=== PATIENT | male | born 1960 | race Caucasian/White ===

== ENCOUNTER 2024-02-26 10:09 | Emergency (ER) | payer MEDICARE, MEDICAID, SELFPAY ==
[2024-02-26 10:10] VITALS: BMI 31.5
[2024-02-26 10:25] VITALS: BP 173/82; PULSE 76; RESP 20; TEMP 37.6; O2SAT 94; BMI 31.5
--- NOTE | 2024-02-26 10:47 | XR_ITS ---
Examination: PA lateral chest 2 views TECHNIQUE: Upright PA lateral chest 2 views Exam date and time: February 26, 2024 1037 hours Comparison 12/03/2023 INDICATIONS: Coughing 2 weeks FINDINGS: Normal heart size Prominent hilar regions with early bilateral perihilar infiltrate IMPRESSION: Early bilateral perihilar pneumonia, follow-up is needed to document clearing and exclude underlying right hilar lymphadenopathy
--- NOTE | 2024-02-26 10:48 | PD.EDRME ---
Rapid Medical Screening Exam RME Arrival date/time: 02/26/24 10:09 63-year-old male who admits to methamphetamine abuse last use today presents with complaints of cough, congestion, body aches Chief Complaint: Flu Like Symptoms Time Seen by Provider: 02/26/24 10:33 Vital signs: Vital Signs Temperature 99.6 F 02/26/24 10:25 Pulse Rate 76 02/26/24 10:25 Respiratory Rate 20 02/26/24 10:25 Blood Pressure 173/82 H 02/26/24 10:25 Pulse Oximetry (%) 94 L 02/26/24 10:25 Oxygen Delivery Method Room Air 02/26/24 10:25
[2024-02-26 11:25] LABS: Basophils % (Auto) 0 % (0-2.5); Eosinophils % (Auto) 0 % (0-10); Hematocrit 42.9 % (41.0-53.0); Hemoglobin 14.1 g/dL (13.5-16.0); Immature Granulocytes % (Auto) 0 % (0-0); Immature Granulocytes Auto 0.01 Thou/mm3 (0.00-0.00); Lymphocytes % (Auto) 15 % (10-50); Mean Corpuscular HGB Conc 32.9 g/dl (31.0-37.0); Mean Corpuscular Volume 82 fL (80-100); Monocytes # (Auto) 1.1 Thou/mm3 (0.0-0.8); Monocytes % (Auto) 17 % (0-12); Neutrophils # (Auto) 4.6 Thou/mm3 (1.8-7.7); Neutrophils % (Auto) 68 % (37-80); Nucleated Red Blood Cell % 0 /100 WBC (0); Platelet Count 277 Thou/mm3 (140-440); RDW Standard Deviation 41.1 fL (35.1-43.9); Red Blood Count 5.23 Miln/mm3 (4.50-5.90); White Blood Count 6.8 Thou/mm3 (3.8-10.6)
[2024-02-26 11:38] LABS: Collection Type, Urine Clean Catch
[2024-02-26 11:42] LABS: Alanine Aminotransferase 16 U/L (10-49); Albumin, Serum 4.8 gm/dL (3.4-4.8); Albumin/Globulin Ratio 1.3 (1.2-2.2); Alkaline Phosphatase 84 U/L (46-116); Anion Gap 10 (7-16); Aspartate Amino Transferase 30 U/L (0-34); BUN/Creatinine Ratio 19 Ratio (12-20); Bilirubin,Total 0.7 mg/dL (0.3-1.2); Blood Urea Nitrogen 27 mg/dL (9-23); Calcium 9.1 mg/dL (8.3-10.6); Calcium (Corrected) 9.1 mg/dL (8.5-10.1); Carbon Dioxide 25.4 mMol/L (20.0-31.0); Chloride 102 mMol/L (98-107); Creatinine (Component) 1.4 mg/dL (0.6-1.3); Estimated Creatinine Clearance 62.3 mL/min (>60); Globulin 3.8 gm/dL (2.3-3.5); Glucose 115 mg/dL (74-106); Osmolality,Calculated 279 (275-295); Potassium 3.7 mMol/L (3.4-5.1); Sodium 137 mMol/L (136-145); Total Protein 8.6 gm/dL (5.7-8.2); eGFR 56 See Note
[2024-02-26 11:53] LABS: Alcohol, Urine Negative (Negative); Amphetamine/Methamp Scrn,U Positive (Negative); Barbiturate Screen,Urine Negative (Negative); Benzodiazepines Screen,Urine Negative (Negative); Benzoylecgonine Screen, Ur Negative (Negative); Fentanyl Screen,Urine Negative (Negative); Opiate Screen,Urine Negative (Negative); THC Screen,Urine Positive (Negative)
[2024-02-26 12:03] LABS: Bacteria,Urine 2+; Bilirubin,Urine Negative (Negative); Blood,Urine Trace (Negative); Color,Urine Yellow (Lt Yel-Yel); Glucose, Urine Negative (Negative); Ketones,Urine Negative (Negative); Leukocyte Esterase,Urine Positive (Negative); Nitrite,Urine Negative (Negative); PH,Urine 5.5 (5.0-7.0); Protein,Urine 1+ (Neg - Trace); RBC,Urine 4 /hpf (0-3); Specific Gravity,Urine 1.019 (1.001-1.035); Squamous Epithelial Cell,Urine < 1 /hpf (0-5); Transitional Epi Cells,Urine < 1 /hpf (0-5); Urobilinogen,Urine Negative mg/dL (0.0-1.0); WBC,Urine 38 /hpf (0-5)
[2024-02-26 12:11] LABS: Clarity,Urine Hazy (Clear/Hazy); Culture Indicated,Urine Yes
--- NOTE | 2024-02-26 12:39 | EDNOTE_ITS ---
Upper Respiratory Inf. RME/HPI General Chief Complaint: Flu Like Symptoms Stated Complaint: COUGH, MUCUS, AND RASH TO ARMS Time Seen by Provider: 02/26/24 10:33 Arrival date/time: 02/26/24 10:09 63-year-old male with medical history significant for methamphetamine abuse presents to the emergency department complaints of cough, congestion, runny nose and bodyaches ongoing for the last couple of days Limitations: no limitations RME / HPI RME / HPI Narrative: 02/26/24 10:09 63-year-old male who admits to methamphetamine abuse last use today presents with complaints of cough, congestion, body aches Related Data Previous Rx's ?Medication ?Instructions ?Recorded sulfamethoxazole 800 1 tab PO BID #14 tabs 12/03/23 mg-trimethoprim 160 mg tablet benzonatate 100 mg capsule 100 mg PO TID #14 caps 02/26/24 ibuprofen 800 mg tablet 800 mg PO TID PRN pain #30 tabs 02/26/24 levofloxacin 750 mg tablet 750 mg PO Q24H 5 days #5 tabs 02/26/24 Allergies Allergy/AdvReac Type Severity Reaction Status Date / Time No Known Allergies Allergy Verified 02/26/24 10:12 Review of Systems Review of Systems Systems Reviewed: All systems reviewed, normal except as documented Constitutional Constitutional: Reports system reviewed and no additional complaints, except as documented, Reports body ache(s), Reports chills, Denies fever(s) and Denies headache(s) Eyes Eyes: Reports system reviewed and no additional complaints, except as documented and Denies blurry vision ENT Ears, Nose, Mouth, and Throat: Reports system reviewed and no additional complaints, except as documented, Denies headache(s), Reports nasal congestion and Reports nasal discharge Cardiovascular Cardiovascular: Reports system reviewed and no additional complaints, except as documented, Denies chest pain and Denies dyspnea Respiratory Respiratory: Reports system reviewed and no additional complaints, except as documented, Reports chest congestion, Denies cough and Denies dyspnea Gastrointestinal Gastrointestinal: Reports system reviewed and no additional complaints, except as documented and Denies abdominal pain Integumentary/Breasts Skin/Breast: Reports system reviewed and no additional complaints, except as documented and Denies rash Neurologic Neurologic: Reports system reviewed and no additional complaints, except as documented, Reports as per HPI and Denies headache(s) Past Medical History Past Medical History CARDIAC: Negative Congestive Heart Failure RESPIRATORY: Negative Chronic Obstructive Pulmonary Disease (COPD) GENITOURINARY: Negative Renal Disease ENDOCRINE: Negative Diabetes Mellitus Type 1 or Diabetes Mellitus Type 2 Social History SMOKING STATUS: Current every day smoker ED Exam General Limitations: Present no limitations General appearance: Present alert and in no apparent distress Head Head exam: Present atraumatic, normocephalic and normal inspection Eye Eye exam: Present normal appearance, PERRL and EOMI; Absent conjunctival injection ENT ENT exam: Present normal exam, normal oropharynx and mucous membranes moist Neck Neck exam: Present normal inspection, full ROM and trachea midline Chest Chest inspection: Present normal inspection and symmetric chest wall rise Respiratory Respiratory exam: Present normal lung sounds bilaterally; Absent respiratory distress Cardiovascular Cardiovascular exam: Present regular rate, normal rhythm and normal heart sounds Abdominal Exam Abdominal exam: Present soft and normal bowel sounds; Absent distention, tenderness, guarding, rebound or rigidity Extremities Exam Extremities exam: Present normal inspection and full ROM Back Exam Back exam: Present normal inspection and full ROM Neurological Exam Neurological exam: Present alert, oriented X3, CN II-XII intact, normal gait and reflexes normal; Absent motor sensory deficit Psychiatric Psychiatric exam: Present normal affect and normal mood Skin Skin exam: Present warm, dry, intact and normal color; Absent rash Course Quality Measures none Orders Category Date Time Status Bedside COVID-19 Antigen Test NOW Care 02/26/24 10:47 Completed Bedside Influenza A&B Antigen Test NOW Care 02/26/24 10:47 Completed XR chest 2V Stat Exams 02/26/24 10:47 Completed Alcohol, Urine Stat Lab 02/26/24 11:23 Completed CBC Stat Lab 02/26/24 11:03 Completed Comprehensive Metabolic Panel Stat Lab 02/26/24 11:03 Completed Drug Screen,Urine Stat Lab 02/26/24 11:23 Completed UA, C/S IF [Urinalysis, C/S if Indicated] Stat Lab 02/26/24 11:23 Completed Urine Culture Stat Lab 02/26/24 11:23 Received Lidocaine 1% 20 ml [Xylocaine 1% 20 ML] Med 02/26/24 12:39 Discontinued 2.1 ml INFL X1 ONE cefTRIAXone [Rocephin] Med 02/26/24 12:39 Discontinued 1,000 mg IM X1 ONE Vital Signs Vital signs: Vital Signs Temperature 99.6 F 02/26/24 10:25 Pulse Rate 76 02/26/24 10:25 Respiratory Rate 20 02/26/24 10:25 Blood Pressure 173/82 H 02/26/24 10:25 Pulse Oximetry (%) 94 L 02/26/24 10:25 Oxygen Delivery Method Room Air 02/26/24 10:25 O2 saturation 94% on room air Upper Respiratory Infection MDM Narrative MDM Narrative:: 63-year-old male with medical history significant for methamphetamine abuse presents to the emergency department complaints of cough, congestion, runny nose and bodyaches ongoing for the last couple of days On exam patient does not appear ill or toxic in no acute distress patient has no tachypnea or dyspnea no increased work of breathing Chest x-ray and lab work obtained Chest x-ray consistent with pneumonia urinalysis consistent with UTI Patient given Rocephin here discharge home with antibiotics Patient discharged home in no distress to follow-up with primary care doctor in the next 24 to 48 hours and for any worsening symptoms to return to the ER immediately Patient data External records reviewed:: [facility] previous records Clinical information provided by:: patient Social determinants that could affect healthcare access:: none Patient has the following chronic illnesses:: None How is presenting disease/condition affected by chronic disease/condition?: no chronic disease Evaluation data The following diagnostics were reviewed and interpreted by me:: lab results and radiology exam(s) Lab and/or radiology exams considered but not ordered:: Labs and radiology obtained Interpretation Summary: Reviewed by me Medications / Prescriptions Medications or Prescriptions considered but not ordered:: Given Medication administrations:: Medication Administration History Discontinued Medications Ceftriaxone Sodium (Ceftriaxone Sod Inj 1,000 Mg Vial) 1,000 mg IM X1 ONE Stop: 02/26/24 12:40 Last Admin: 02/26/24 12:54 Dose: 1,000 mg Documented By: GIUSEPPE Lidocaine HCl (Lidocaine Hcl 1% 20 Ml Vial) 2.1 ml INFL X1 ONE Stop: 02/26/24 12:40 Last Admin: 02/26/24 12:54 Dose: 2.1 ml Documented By: GIUSEPPE Given Consultations Consultation(s) initiated? (list below): No Diagnosis Upper Respiratory Differential Diagnosis: upper respiratory infection, croup, otitis media, sinusitis, viral infection, bronchitis and pharyngitis Most likely diagnosis given after review of the tests above:: Pneumonia, UTI Admission Indicated Admission indicated?: not indicated Admission Request Was there a request for admission?: No Disposition Plan Disposition Plan: Discharge Discharge Attestation Discharge Attestation: The patient and all family members were given an opportunity to ask questions and understood the discharge instructions. Discharge instructions specifically effects, indications for sooner follow up or return to the emergency department, and the expected course of current diagnosis. Patient condition: Stable Discharge Plan Plan Patient Disposition: HOME (Self Care) Disposition Comment: Stable Prescriptions/Referrals Prescriptions/Med Rec: New ibuprofen 800 mg tablet 800 mg PO TID PRN (Reason: pain) Qty: 30 0RF benzonatate 100 mg capsule 100 mg PO TID Qty: 14 0RF levofloxacin 750 mg tablet 750 mg PO Q24H 5 Days Qty: 5 0RF No Action sulfamethoxazole-trimethoprim 800-160 mg tablet 1 tab PO BID Qty: 14 0RF Referrals: No Primary/Family,Physician [Primary Care Provider] - In 1 week Problem List Clinical Impression: Pneumonia, UTI (urinary tract infection), Methamphetamine abuse Patient/Caregiver Discharge Instructions Education Materials: ED Drug Abuse Additional Instructions: Please follow up with your primary care doctor in the next 24-48hrs for any worsening symptoms return here immediately Please take all antibiotics as prescribed Print Language: Cuban Stand Alone Forms: Melissa Award Info., Patient Portal Info Letter PA/CINDI Supervising Physician LAWRENCE/CINDI Supervising Physician: Dr. Purdy
[2024-02-26] MEDS: cefTRIAXone SOD INJ 1,000 MG VIAL 1000 MG IM (12:54)
[2024-02-26] MEDS: LIDOCAINE HCL 1% 20 ML VIAL 2.1 ML INFL (12:54)
== END 2024-02-26 13:17 | disposition home or self-care (01) ==
PROVIDERS: Nurse Practitioner Primary Care; Emergency Provider Emergency Medicine
DX: J18.9 Pneumonia, unspecified organism (principal); N39.0 Urinary tract infection, site not specified; F15.10 Other stimulant abuse, uncomplicated; F17.210 Nicotine dependence, cigarettes, uncomplicated
CPT/HCPCS: 36415; 71046; 80053; 80307; 80320; 81001; 85025; 87086; 87400; 87811; 96372; 99283; J0696; J3490; G0480

== ENCOUNTER 2024-06-24 09:37 | Emergency (ER) | payer MEDICARE, MEDICAID, SELFPAY ==
--- NOTE | 2024-06-24 10:07 | EKG_ITS ---
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1960 Requested By: Eduardo Douglass Order Number: [id number] Reading MD: Eduardo Douglass Measurements Intervals [place] Rate: 91 P: 268 ND: 127 QRS: -56 QRSD: 122 T: 61 QT: 392 QTc: 483 Interpretive Statements JUNCTIONAL RHYTHM WITH OCCASIONAL SUPRAVENTRICULAR PREMATURE COMPLEXES LEFT AXIS DEVIATION [QRS AXIS < -30] RIGHT BUNDLE BRANCH BLOCK [120+ ms QRS DURATION, UPRIGHT V1, 40+ ms S IN I/aVL/V4/V5/V6] Compared to ECG 12/03/2023 10:50:41 Junctional rhythm now present Left-axis deviation now present Atrial fibrillation no longer present Left anterior fascicular block no longer present Myocardial infarct finding no longer present /store/S0/[id number]/ecg/[id number].pdf
--- NOTE | 2024-06-24 10:08 | PD.EDRME ---
Rapid Medical Screening Exam E Arrival date/time: 06/24/24 09:37 63-year-old male with a history of hypertension, arthritis presents to the emergency room with a chief complaint of generalized body pain, headaches x 2 days. Patient states he has been out of his hypertension medication for the last 3 days. I have greeted and performed a focused initial assessment of this patient. A comprehensive ED assessment and evaluation of the patient, analysis of all test results, and completion of the medical decision making process will be conducted by additional ED providers. Chief Complaint: Headache Vital signs reviewed by provider: Yes
[2024-06-24 10:11] VITALS: BP 181/104; PULSE 76; RESP 18; TEMP 36.9; O2SAT 96; BMI 34.0
[2024-06-24] MEDS: KETOROLAC INJ 60 MG/2 ML VIAL 30 MG IM (10:29)
[2024-06-24 10:33] VITALS: BP 163/108
[2024-06-24 10:46] LABS: Basophils % (Auto) 0 % (0-2.5); Eosinophils # (Auto) 0.1 Thou/mm3 (0.0-0.5); Eosinophils % (Auto) 1 % (0-10); Hematocrit 40.2 % (41.0-53.0); Hemoglobin 13.1 g/dL (13.5-16.0); Immature Granulocytes % (Auto) 0 % (0-0); Immature Granulocytes Auto 0.03 Thou/mm3 (0.00-0.00); Lymphocytes # (Auto) 1.4 Thou/mm3 (1.0-4.8); Lymphocytes % (Auto) 17 % (10-50); Mean Corpuscular HGB Conc 32.6 g/dl (31.0-37.0); Mean Corpuscular Hemoglobin 27.4 pg (25.0-35.0); Mean Corpuscular Volume 84 fL (80-100); Monocytes # (Auto) 0.9 Thou/mm3 (0.0-0.8); Monocytes % (Auto) 10 % (0-12); Neutrophils % (Auto) 71 % (37-80); Nucleated Red Blood Cell % 0 /100 WBC (0); Platelet Count 249 Thou/mm3 (140-440); RDW Standard Deviation 47.5 fL (35.1-43.9); Red Blood Count 4.78 Miln/mm3 (4.50-5.90); White Blood Count 8.4 Thou/mm3 (3.8-10.6)
[2024-06-24 11:03] LABS: Alanine Aminotransferase 17 U/L (10-49); Albumin, Serum 4.2 gm/dL (3.4-4.8); Albumin/Globulin Ratio 1.2 (1.2-2.2); Alkaline Phosphatase 113 U/L (46-116); Anion Gap 8 (7-16); Aspartate Amino Transferase 21 U/L (0-34); BUN/Creatinine Ratio 19 Ratio (12-20); Bilirubin,Total 0.6 mg/dL (0.3-1.2); Blood Urea Nitrogen 25 mg/dL (9-23); Carbon Dioxide 23.9 mMol/L (20.0-31.0); Chloride 109 mMol/L (98-107); Creatinine (Component) 1.3 mg/dL (0.6-1.3); Estimated Creatinine Clearance 69.6 mL/min (>60); Globulin 3.5 gm/dL (2.3-3.5); Glucose 201 mg/dL (74-106); Magnesium 1.9 mg/dL (1.6-2.6); Osmolality,Calculated 291 (275-295); Sodium 141 mMol/L (136-145); Total Protein 7.7 gm/dL (5.7-8.2); Troponin I 0.026 ng/mL (0.0-0.045); eGFR > 60 See Note
[2024-06-24 11:05] LABS: Collection Type, Urine Clean Catch
[2024-06-24 11:11] LABS: INR 0.9 (0.9-1.3); Partial Thromboplastin Time 27.3 Seconds (22.0-36.0); Prothrombin Time 10.4 Seconds (9.0-12.2)
[2024-06-24 11:15] LABS: Bilirubin,Urine Negative (Negative); Blood,Urine Negative (Negative); Clarity,Urine Clear (Clear/Hazy); Color,Urine Lt-Yellow (Lt Yel-Yel); Glucose, Urine Negative (Negative); Ketones,Urine Negative (Negative); Leukocyte Esterase,Urine Positive (Negative); Nitrite,Urine Negative (Negative); Protein,Urine 1+ (Neg - Trace); RBC,Urine 3 /hpf (0-3); Specific Gravity,Urine 1.029 (1.001-1.035); Squamous Epithelial Cell,Urine 1 /hpf (0-5); Urobilinogen,Urine Negative mg/dL (0.0-1.0); WBC,Urine 11 /hpf (0-5)
[2024-06-24 11:18] LABS: B-Type Natriuretic Peptide 87 pg/mL (0-100)
[2024-06-24 11:22] LABS: Amphetamine/Methamp Scrn,U Positive (Negative); Barbiturate Screen,Urine Negative (Negative); Benzodiazepines Screen,Urine Negative (Negative); Benzoylecgonine Screen, Ur Negative (Negative); Fentanyl Screen,Urine Negative (Negative); Opiate Screen,Urine Negative (Negative); THC Screen,Urine Positive (Negative)
[2024-06-24 12:58] VITALS: BP 176/102; PULSE 79; RESP 16; TEMP 36.9; O2SAT 97
--- NOTE | 2024-06-24 13:05 | EDNOTE_ITS ---
ED General RME/HPI General Chief complaint: Headache Stated complaint: ARTHRITIS PAIN, SEVERE HEADACHE SINCE AM Time Seen by Provider: 06/24/24 12:42 Arrival date/time: 06/24/24 09:37 CC: Headache, patient has been out of his hypertension medicine lisinopril 40 mg for the past 3 days. Patient states he typically does not get a headache like this is in the posterior side of his head patient continues to admit that he smokes methamphetamines every morning even though it does nothing, I expressed upon him the importance that he stops the methamphetamines because it is hard on his heart and his blood pressure. Patient is awake alert oriented no focal deficits denies any blurred vision seeing spots nausea vomiting difficulty breathing or chest pain. RME / HPI RME / HPI narrative: 06/24/24 09:37 63-year-old male with a history of hypertension, arthritis presents to the emergency room with a chief complaint of generalized body pain, headaches x 2 days. Patient states he has been out of his hypertension medication for the last 3 days. I have greeted and performed a focused initial assessment of this patient. A comprehensive ED assessment and evaluation of the patient, analysis of all test results, and completion of the medical decision making process will be conducted by additional ED providers. Related Data Previous Rx's ?Medication ?Instructions ?Recorded sulfamethoxazole 800 1 tab PO BID #14 tabs mg-trimethoprim 160 mg tablet benzonatate 100 mg capsule 100 mg PO TID #14 caps 02/09 10/02 ibuprofen 800 mg tablet 800 mg PO TID PRN pain #30 t abs 02/26/24 lisinopril 40 mg tablet 40 mg PO QDAY #30 tabs 06/24 Allergies Allergy/AdvReac Type Severity Reaction Status Date / Time No Known Allergies Allergy Verified 06/24/24 09:41 Review of Systems Review of Systems Narrative Review of Systems: GEN: No fever, no chills, no weight loss EYES: No discharge, no visual changes, no pain HEENT: No ear pain, no congestion, no sore throat PULM: No shortness of breath, no cough, no congestion CV: No chest pain, no dyspnea on exertion, no palpitations GI: No nausea, no vomiting, no diarrhea, no pain, no constipation : No frequency, no urgency, no dysuria MUSC/SKEL: No joint pain, no back pain SKIN: No rash PSYCH: No hallucinations, no depression HEME/LYMPH: No easy bleeding or bruising tendencies NEURO: No weakness, no headache Past Medical History Past Medical History CARDIAC: Negative Congestive Heart Failure RESPIRATORY: Negative Chronic Obstructive Pulmonary Disease (COPD) GENITOURINARY: Negative Renal Disease ENDOCRINE: Negative Diabetes Mellitus Type 1 or Diabetes Mellitus Type 2 Social History SMOKING STATUS: Current every day smoker ED Exam Narrative Physical exam: [General: Obese not in acute distress Head normocephalic HEENT: Within acceptable limits Neck is supple nontender Chest equal chest rise nontender to palpation Respiratory: Clear to auscultation no wheezes crackles or rubs CV: Rate rhythm is regular no murmurs rubs or clicks Abdomen is distended secondary to body habitus soft nontender no masses positive bowel sounds all 4 quadrants Back: No CVA tenderness no spinous process tenderness from cervical spine thoracic and lumbar spine Skin: Intact no petechiae rash induration ulceration or crepitus Extremities: Moving all extremity against resistance cap refill less than 2 seconds neurosensory intact Neuro: Awake alert oriented x3 Glascow coma 15 no focal deficits] Course Quality Measures none Orders Category Date Time Status EKG (ED ONLY) *Do not use* NOW Care 06/24/24 10:07 Completed EKG (ED Only) Stat Exams 06/24/24 10:07 Draft B-Type Natriuretic Peptide Stat Lab 06/24/24 10:23 Completed CBC Stat Lab 06/24/24 10:23 Completed Comprehensive Metabolic Panel Stat Lab 06/24/24 10:23 Completed Drug Screen,Urine Stat Lab 06/24/24 10:58 Completed Magnesium Stat Lab 06/24/24 10:23 Completed Partial Thromboplastin Time Stat Lab 06/24/24 10:23 Completed Prothrombin Time with INR Stat Lab 06/24/24 10:23 Completed Troponin I Stat Lab 06/24/24 10:23 Completed Urinalysis Stat Lab 06/24/24 10:58 Completed Ketorolac Inj [Toradol Inj] Med 06/24/24 10:07 Discontinued 30 mg IM X1 ONE Lisinopril [Prinivil] Med 06/24/24 13:04 Once 40 mg PO X1 ONE Vital Signs Vital signs: Vital Signs Temperature 98.5 F 06/24/24 10:11 Pulse Rate 76 06/24/24 10:11 Respiratory Rate 18 06/24/24 10:11 Blood Pressure 181/104 H 06/24/24 10:11 Pulse Oximetry (%) 96 06/24/24 10:11 Oxygen Delivery Method Room Air 06/24/24 10:11 [facility] [place] Patient data External records reviewed:: [facility] previous records Clinical information provided by:: patient Social determinants that could affect healthcare access:: none Patient has the following chronic illnesses:: Hypertension methamphetamine abuse How is presenting disease/condition affected by chronic disease/condition?: e xacerbated by Evaluation data The following diagnostics were reviewed and interpreted by me:: lab results Lab and/or radiology exams considered but not ordered:: CBC shows no acute leukocytosis mild anemia with a hemoglobin of 13.1 hematocrit of 40.2 platelets of 249 Coags within acceptable limits CMP shows a chloride of 107 BUN of 25 glucose of 201 no other electrolyte imbalances no transaminitis or T. bili elevation Troponin is negative BNP is negative Urine is negative for UTI UDS is positive for THC and methamphetamines. Interpretation Summary: Hypertension induced headache secondary to medication noncompliance Medications Medications considered but not ordered:: None Medication administrations:: Medication Administration History Lisinopril (Lisinopril 20 Mg Tablet) 40 mg PO X1 ONE Stop: 06/24/24 13:05 Discontinued Medications Ketorolac Tromethamine (Ketorolac Inj 60 Mg/2 Ml Vial) 30 mg IM X1 ONE Stop: 06/24/24 10:08 Last Admin: 06/24/24 10:29 Dose: 30 mg Documented By: ER None Consultations Consultation(s) initiated? (list below): No Diagnosis Differential Diagnosis ED Complaint MDM: Hypertensive urgency hypertension emergency general headache tension headac Most likely diagnosis given after review of the tests above:: Hypertensive headache secondary to medication noncompliance Admission Indicated Admission indicated?: not indicated Explain why admission is indicated or not indicated:: Stable for outpatient follow-up Admission Request Was there a request for admission?: No Disposition Plan Disposition Plan: Discharge Discharge Attestation Discharge Attestation: The patient and all family members were given an opportunity to ask questions and understood the discharge instructions. Discharge instructions specifically effects, indications for sooner follow up or return to the emergency department, and the expected course of current diagnosis. Patient condition: Stable Medical Decision Making Differential Diagnosis Differential Diagnosis: Hypertensive urgency hypertension emergency general headache tension headac Lab Data 06/24/24 10:23 06/24/24 10:23 Labs: Lab Results 06/24/24 06/24/24 Range/Units 10:23 10:58 WBC 8.4 (3.8-10.6) Thou/mm3 RBC 4.78 (4.50-5.90) Miln/mm3 Hgb 13.1 L (13.5-16.0) g/dL Hct 40.2 L (41.0-53.0) % MCV 84 (80-100) fL MCH 27.4 (25.0-35.0) pg MCHC 32.6 (31.0-37.0) g/dl RDW Std Deviation 47.5 H (35.1-43.9) fL Plt Count 249 (140-440) Thou/mm3 Neut % (Auto) 71 (37-80) % Lymph % (Auto) 17 (10-50) % [place] % (Auto) 10 (0-12) % Eos % (Auto) 1 (0-10) % Baso % (Auto) 0 (0-2.5) % Neut # (Auto) 6.0 (1.8-7.7) Thou/mm3 Lymph # (Auto) 1.4 (1.0-4.8) Thou/mm3 [place] # (Auto) 0.9 H (0.0-0.8) Thou/mm3 Eos # (Auto) 0.1 (0.0-0.5) Thou/mm3 Baso # (Auto) 0.0 (0.0-0.2) Thou/mm3 Immature Gran # (Auto) 0.03 H (0.00-0.00) Thou/mm3 Absolute Nucleated RBC 0.00 (0.00-0.00) Thou/mm3 Immature Gran % 0 (0-0) % Nucleated RBC % 0 (0) /100 WBC PT 10.4 (9.0-12.2) Seconds INR 0.9 (0.9-1.3) APTT 27.3 (22.0-36.0) Seconds Sodium 141 (136-145) mMol/L Potassium 4.0 (3.4-5.1) mMol/L Chloride 109 H (98-107) mMol/L Carbon Dioxide 23.9 (20.0-31.0) mMol/L Anion Gap 8 (7-16) BUN 25 H (9-23) mg/dL Creatinine 1.3 (0.6-1.3) mg/dL Estim Creat Clear Calc 69.6 (>60) mL/min eGFR > 60 (60 - ) See Note BUN/Creatinine Ratio 19 (12-20) Ratio Glucose 201 H (74-106) mg/dL Calculated Osmolality 291 (275-295) Calcium 9.0 (8.3-10.6) mg/dL Corrected Calcium 9.0 (8.5-10.1) mg/dL Magnesium 1.9 (1.6-2.6) mg/dL Total Bilirubin 0.6 (0.3-1.2) mg/dL AST 21 (0-34) U/L ALT 17 (10-49) U/L Alkaline Phosphatase 113 (46-116) U/L Troponin I 0.026 (0.0-0.045) ng/mL B-Natriuretic Peptide 87 (0-100) pg/mL Total Protein 7.7 (5.7-8.2) gm/dL Albumin 4.2 (3.4-4.8) gm/dL Globulin 3.5 (2.3-3.5) gm/dL Albumin/Globulin Ratio 1.2 (1.2-2.2) Ur Collection Type Clean Catch Urine Color Lt-Yellow (Lt Yel-Yel) Urine Clarity Clear (Clear/Hazy) Urine pH 6.0 (5.0-7.0) Ur Specific [place] 1.029 (1.001-1.035) Urine Protein 1+ A (Neg - Trace) Urine Glucose (UA) Negative (Negative) Urine Ketones Negative (Negative) Urine Blood Negative (Negative) Urine Nitrite Negative (Negative) Urine Bilirubin Negative (Negative) Urine Urobilinogen (Auto) Negative (0.0-1.0) mg/dL Ur Leukocyte Esterase Positive (Negative) Urine RBC 3 (0-3) /hpf Urine WBC 11 H (0-5) /hpf Ur Squamous Epith Cells 1 (0-5) /hpf Urine Bacteria None (None) Urine Opiates Screen Negative (Negative) Urine Fentanyl Screen Negative (Negative) Ur Barbiturates Screen Negative (Negative) U Amphetamin/Meth Scrn Positive A (Negative) U Benzodiazepines Scrn Negative (Negative) U Cocaine Metab Screen Negative (Negative) U Marijuana (THC) Screen Positive A (Negative) Discharge Plan Plan Patient Disposition: HOME (Self Care) Patient condition on transfer: Stable Prescriptions/Referrals Prescriptions/Med Rec: New lisinopril 40 mg tablet 40 mg PO QDAY Qty: 30 1RF No Action sulfamethoxazole-trimethoprim 800-160 mg tablet 1 tab PO BID Qty: 14 0RF ibuprofen 800 mg tablet 800 mg PO TID PRN (Reason: pain) Qty: 30 0RF benzonatate 100 mg capsule 100 mg PO TID Qty: 14 0RF Referrals: Bandar August MD [Primary Care Provider] - In 1 week Problem List Clinical Impression: Headache, Hypertension, Methamphetamine abuse Patient/Caregiver Discharge Instructions Education Materials: Self-Care for Headaches, ED Drug Abuse, ED High Blood Pressure ... Print Language: Khmer Stand Alone Forms: Melissa Award Info., Patient Portal Info Letter PA/DRYWALL HANGER Supervising Physician PA/DRYWALL HANGER Supervising Physician: Mango Liu ENP
[2024-06-24 13:17] VITALS: BP 176/102; PULSE 79
[2024-06-24] MEDS: Lisinopril 20 MG TABLET 40 MG PO (13:17)
[2024-06-24 13:21] VITALS: BP 176/102; PULSE 79; RESP 16; TEMP 36.9; O2SAT 97
== END 2024-06-24 13:22 | disposition home or self-care (01) ==
PROVIDERS: Nurse Practitioner Family; Emergency Provider Emergency Medicine; PCP Family Medicine
DX: R51.9 Headache, unspecified (principal); I10 Essential (primary) hypertension; F15.10 Other stimulant abuse, uncomplicated; I45.10 Unspecified right bundle-branch block
CPT/HCPCS: 36415; 80053; 80307; 81001; 83735; 83880; 84484; 85025; 85610; 85730; 93005; 96372; 99283; J1885; A9270